=== PATIENT | female | born 1995 | race Two or more races ===

== ENCOUNTER 2020-04-27 10:34 | Observation (INO) | payer MEDICAID, OTHER ==
[~2020-04-27] VITALS: Ht 157.5 cm; Wt 67.1 kg
[2020-04-27] MEDS ORDERED: PREN1TAB22 PO (11:17)
[2020-04-27] MEDS ORDERED: FAMO20TA8 PO (11:17)
== END 2020-04-27 13:45 | disposition home or self-care (01) ==
LOC: 8 EST LDRP 10:34
PROVIDERS: ADMIT Obstetrics & Gynecology; ATTEND Obstetrics & Gynecology
DX: O32.1XX0 Maternal care for breech presentation, not applicable or unspecified (principal); Z20.828 Contact with and (suspected) exposure to other viral communicable diseases; Z3A.41 41 weeks gestation of pregnancy
CPT/HCPCS: 59025; 76805; 76818; G0378; U0003

== ENCOUNTER 2020-04-28 10:22 | Inpatient (IN) | payer MEDICAID, OTHER ==
[~2020-04-28] VITALS: Ht 157.5 cm; Wt 59.0 kg
[~2020-04-28 10:22] MED LIST: FAMO20TA8 PO; PREN1TAB22 PO
[2020-04-28] MEDS ORDERED: MISOPROSTOL 100MCG TABLET VG SCH (11:30)
[2020-04-28] MEDS ORDERED: DEXT 5%/LR + PITOCIN 20UNITS/L 1,000 ML IV SCH (11:30)
[2020-04-28] MEDS ORDERED: NALOXONE HCL 0.4 MG/ML 1ML VIAL IM PRN (11:30)
[2020-04-28 11:46] LABS: BASOPHILS % 0.2 % (0.0-2.0); EOSINOPHILS % 0.6 % (0.0-5.0); HEMATOCRIT. 43.8 % (36.0-48.0); HEMOGLOBIN. 14.7 g/dL (12.0-16.0); LYMPHOCYTES % 19.8 % (20.0-50.0); MEAN CORPUSCULAR HEMOGLOBIN 30.9 pg (28.0-32.0); MEAN PLATELET VOLUME 11.2 fl (7.4-10.4); MONOCYTES % 6.9 % (2.0-8.0); NEUTROPHILS % 72.5 % (40.0-76.0); PLATELET 163 x1000/uL (130-400); RED BLOOD CELL COUNT 4.76 mill/uL (4.2-5.4)
[2020-04-28] MEDS: LACTATED RINGERS 1,000 ML IV SCH (11:49)
[2020-04-28 12:05] LABS: INR 0.9; PARTIAL THROMBOPLASTIN TIME 26.8 sec (23.4-31.0); PROTHROMBIN TIME 9.8 sec (9.6-11.0)
[2020-04-28 12:21] LABS: HEPATITIS B SURFACE ANTIGEN NEGATIVE
[2020-04-28] MEDS ORDERED: CEFAZOLIN SODIUM 1000MG/VIAL ONE (12:23)
[2020-04-28] MEDS ORDERED: OXYTOCIN 10 UNITS/ML 1ML ONE (12:23)
[2020-04-28] MEDS ORDERED: MORPHINE SULFATE/PF 1MG/ML 10ML AMP ONE (12:23)
[2020-04-28] MEDS ORDERED: FENTANYL CITRATE/PF 50MCG/ML 2ML VIAL ONE (12:23)
[2020-04-28] MEDS ORDERED: ONDANSETRON HCL 4MG/2ML INJ ONE (12:23)
[2020-04-28] MEDS ORDERED: CITRIC ACID/SODIUM CITRATE SOLN 30ML UDC PO NR (12:30)
[2020-04-28 12:49] LABS: CLARITY URINE CLOUDY (CLEAR); COLOR URINE YELLOW (YELLOW); KETONES URINE NEGATIVE (NEGATIVE); LEUKOCYTE ESTERASE URINE 2+ (NEGATIVE); NITRITE URINE NEGATIVE (NEGATIVE); OCCULT BLOOD URINE NEGATIVE (NEGATIVE); PROTEIN URINE NEGATIVE (NEGATIVE)
[2020-04-28 13:15] LABS: *AMPHETAMINES SCREEN URINE NEGATIVE (NEGATIVE); *BARBITURATES SCREEN URINE NEGATIVE (NEGATIVE); *BENZODIAZEPINES SCREEN URINE NEGATIVE (NEGATIVE); *COCAINE SCREEN URINE NEGATIVE (NEGATIVE); METHADONE URINE SCREEN NEGATIVE (NEGATIVE); OPIATES URINE SCREEN NEGATIVE (NEGATIVE)
[2020-04-28 13:16] LABS: CANNABINOID URINE SCREEN NEGATIVE (NEGATIVE); PHENCYCLIDINE URINE SCREEN NEGATIVE (NEGATIVE)
[2020-04-28] MEDS ORDERED: DIPHENHYDRAMINE 50MG/ML VIAL ONE (19:44)
[2020-04-28] MEDS ORDERED: KETOROLAC 60MG/2ML VIAL IM ONE (19:46)
[2020-04-28] MEDS ORDERED: BISACODYL 10MG SUPP PR PRN (20:00)
[2020-04-28] MEDS ORDERED: RHO(D) IMMUNE GLOBULIN 300 MCG/SYR IM PRN (20:00)
[2020-04-28] MEDS ORDERED: LANOLIN OINT 7GM TUBE TOP PRN (20:00)
[2020-04-28] MEDS ORDERED: IBUPROFEN 800MG TABLET PO PRN (20:00)
[2020-04-28] MEDS ORDERED: IBUPROFEN 400MG TABLET PO PRN (20:00)
[2020-04-28] MEDS ORDERED: DIPHENHYDRAMINE 25MG CAPSULE PO PRN (20:00)
[2020-04-28] MEDS ORDERED: HYDROCODONE/ACETAMINOPHEN 5/325MG TABLET PO PRN (20:00)
[2020-04-28] MEDS ORDERED: DIPHENHYDRAMINE 50MG/ML VIAL IV PRN (20:30)
[2020-04-28] MEDS ORDERED: NALOXONE HCL 0.4 MG/ML 1ML VIAL IV PRN (20:30)
[2020-04-28] MEDS ORDERED: BUTORPHANOL TARTRATE 2 MG/ML VIAL IV PRN (20:30)
[2020-04-28] MEDS ORDERED: MAGNESIUM/ALUMINUM HYDROXIDE/SIMETHICONE 30ML UDC PO SCH (21:00)
[2020-04-28] MEDS ORDERED: DOCUSATE SODIUM 100MG CAPSULE PO SCH (21:00)
[2020-04-28 22:00] VITALS: BP_SYST 95; BP_SYST 97; BP_DIAS 54; BP_DIAS 55
[2020-04-28] MEDS: DEXT 5%/LR + PITOCIN 20UNITS/L 1,000 ML IV SCH (22:03)
[2020-04-28 22:30] VITALS: BP 100/56
[2020-04-28 23:30] VITALS: BP 103/58
[2020-04-29] VITALS (7 sets, daily range): BP systolic 80–100; BP diastolic 45–58
[2020-04-29] MEDS: KETOROLAC 30MG/ML VIAL IV SCH ×3 (02:51→15:47)
[2020-04-29] MEDS: DEXT 5%/LR + PITOCIN 20UNITS/L 1,000 ML IV SCH ×2 (03:34→15:48)
[2020-04-29 06:22] LABS: BASOPHILS % 0.4 % (0.0-2.0); EOSINOPHILS % 0.3 % (0.0-5.0); HEMATOCRIT. 34.9 % (36.0-48.0); HEMOGLOBIN. 12.2 g/dL (12.0-16.0); MEAN CORPUSCULAR HEMOGLOBIN 31.9 pg (28.0-32.0); MEAN CORPUSCULAR VOLUME 91.5 fL (81.0-99.0); MEAN PLATELET VOLUME 10.8 fl (7.4-10.4); MONOCYTES % 7.7 % (2.0-8.0); NEUTROPHILS % 78.6 % (40.0-76.0); PLATELET 128 x1000/uL (130-400); RED BLOOD CELL COUNT 3.81 mill/uL (4.2-5.4); RED CELL DISTRIBUTION WIDTH 13.3 % (11.6-14.6)
[2020-04-29] MEDS ORDERED: PRENATAL VIT/FE FUMARATE/FA TABLET PO SCH (09:00)
[2020-04-29] MEDS ORDERED: KETOROLAC 30MG/ML VIAL IV NR (15:24)
[2020-04-29] MEDS ORDERED: TETANUS, DIPHTHERIA, PERTUSSIS VAC/PF 0.5ML (>7YR OLD) IM ONE (22:00)
[2020-04-30 04:00] VITALS: BP 87/46
[2020-04-30] MEDS ORDERED: IBUP-2030 PO (07:01)
[2020-04-30] MEDS ORDERED: DOCU-150 PO (07:01)
[2020-04-30] MEDS ORDERED: FERR325T6 MT (07:01)
[2020-04-30 08:00] VITALS: BP 94/58
== END 2020-04-30 12:25 | disposition home or self-care (01) | DRG 540 ==
LOC: OBSVTOIN 10:22 → INTOOBSV 10:22 → 8 EST A/PP 10:22 → 8EST 22:02
PROVIDERS: ADMIT Obstetrics & Gynecology; ATTEND Obstetrics & Gynecology
PROC: 10D00Z1 Extraction of Products of Conception, Low, Open Approach (ICD-10-PCS; principal; 2020-04-28)
PROC: 3E0234Z Introduction of Serum, Toxoid and Vaccine into Muscle, Percutaneous Approach (ICD-10-PCS; 2020-04-28)
DX: O32.1XX0 Maternal care for breech presentation, not applicable or unspecified (principal); O48.0 Post-term pregnancy; O26.893 Other specified pregnancy related conditions, third trimester; Z3A.41 41 weeks gestation of pregnancy; Z37.0 Single live birth; Z23 Encounter for immunization; Z67.91 Unspecified blood type, Rh negative
CPT/HCPCS: 36415; 80305; 81003; 85025; 86592; 86703; 86762; 86850; 86886; 86900; 87340; 88307; 90384; 90715; G0378; J0690; J1200; J1885; J2274; J2405; J2590; J3010; J7120